=== PATIENT | female | born 1975 | race Caucasian/White ===

== ENCOUNTER 2016-08-19 19:43 | Emergency (ER) | payer OTHER ==
[~2016-08-19] VITALS: Ht 170.2 cm; Wt 90.7 kg
[~2016-08-19 19:43] MED LIST: AUGMENTIN 875 M1 TAB PO; EFFEXOR XR75 M1 PO; PLAQUENIL200 M1 PO; VERAPAMIL HCL40 M1 PO; VICODIN5-300 PO
--- NOTE | 2016-08-19 21:32 | ED HEADACHE COMPLAINT ---
History of Present Illness General Chief Complaint: Headache Stated Complaint: GARCIA Source: patient Exam Limitations: no limitations Vital Signs & Intake/Output Vital Signs & Intake/Output Vital Signs Date Time Temp Pulse Resp B/P Pulse O2 O2 Flow FiO2 Ox Delivery Rate 08/19 2237 97.7 71 18 115/66 94 Room Air 08/19 2025 99.0 77 20 124/84 97 Room Air ED Intake and Output 08/20 0000 08/19 1200 Intake Total 1000 Output Total Balance 1000 Intake, IV 1000 Patient 200 lb Weight Allergies Coded Allergies: phenytoin (From DILANTIN) (Intermediate, FLUSH 08/19/16) Reconcile Medications AMOXICILLIN/POTASSIUM CLAV (Augmentin 875-125 Tablet) 875 MG/125 MG TAB 1 TAB PO BID CAT BITE HYDROCODONE/ACETAMINOPHEN (Hydrocodon-Acetaminophen 5-325) 5 MG-325 MG TABLET 1 TAB PO Q6HR PRN PAIN Hydroxychlorquine (Plaquenil) 200 MG TABLET 1 TAB PO BID UNKNOWN (Reported) Venlafaxine Hydrochloride (Effexor-XR) 75 MG CER 1 CAP PO DAILY MOOD HEALTH ( Reported) Verapamil Hydrochloride (Verapamil HCl) 40 MG TAB 20 MG PO BID HEART ( Reported) Triage Note: TRIAGE: PT TO ER C/C MIGRAINE H/A X 1 WK WORSENING TODAY. HX OF MIGRAINES. TRIED REGLAN, INDOMETHACIN AND ?MARATRIPTAN MEDICATION. ALSO TRIED OTC ADVIL. ALL WITH NO RELIEF NOTED. Triage Nurses Notes Reviewed? yes : No Patient currently breastfeeds: No HPI: This patient is a 41-year-old female with a past medical history including migraine headaches who presented to the emergency department today accompanied by her for evaluation of a migraine 1 week. The patient reported that she was able to get her migraine headaches down to, "a dull sensation," throughout the week with Reglan for her nausea, indomethacin, and a triptan- based medication. The patient reported that she took indomethacin at approximately 3:00 today and her other medication at approximately 6:00 this evening. She reported that the only other time she was seen in the emergency Department for a severe migraine was approximately 5 years ago when she, "presented like a stroke and needed an MRI." The patient denied history of any stroke diagnosis. The patient reported that she has felt nauseous with no vomiting. She reported the pain is primarily on the left side of her head in the temporal region, it has been radiating to the backs of both her eyes and across her forehead. The pain is a 10 out of 10 and is constant since today. The patient denied any abdominal pain, neck pain, chest pain, difficulty breathing. Positive photophobia. Patient has been reported that she has not had any slurred speech or altered behavior. (CORWIN MALCOLM PA-C) Past History Travel History Traveled to [place] past 21 day No Medical History Any Pertinent Medical History? see below for history Neurological: migraine, seizure EENT: NONE Cardiovascular: NONE Respiratory: NONE Gastrointestinal: pancreatitis Hepatic: cholelithiasis Renal: NONE Musculoskeletal: MIXED CONNECTIVE TISSUE D/O Psychiatric: NONE Endocrine: NONE Blood Disorders: NONE Cancer(s): NONE GRAPHICS INTERN/Reproductive: NONE Tetanus Vaccine: 02/06/15 Surgical History Surgical History: non-contributory Psychosocial History What is your primary language Yoruba Tobacco Use: Current Daily Use Daily Tobacco Use Amount/Type: => 5 Cigarettes daily ETOH Use: occasional use Illicit Drug Use: denies illicit drug use Family History Hx Contributory? No (CORWIN MALCOLM PA-C) Review of Systems Review of Systems Constitutional: Reports: no symptoms. Eyes: Reports: see HPI. Ears, Nose, Throat, Mouth: Reports: no symptoms. Respiratory: Reports: no symptoms. Cardiovascular: Reports: no symptoms. Gastrointestinal/Abdominal: Reports: see HPI. Genitourinary: Reports: no symptoms. Musculoskeletal: Reports: no symptoms. Skin: Reports: no symptoms. Neurological/Psychological: Reports: see HPI. Endocrine: Reports: no symptoms. All Other Systems: Reviewed and Negative (CORWIN MALCOLM PA-C) Physical Exam Physical Exam Cranial Nerves: normal hearing, normal speech, PERRL Comments: Well-developed well-nourished person in no acute distress HEENT: Head normocephalic/atraumatic with no bony deformity/step-offs of the skull, tenderness to palpation over the left side of the scalp and left side of the forehead. Moist mucous membranes PERRLA bilaterally. EOMI bilaterally Neck: Supple, no lymphadenopathy. No midline tenderness Back: Normal inspection Cardiovascular: Regular rate and rhythm with no murmurs, rubs, or gallops Respiratory: No respiratory distress. Breath sounds clear to auscultation bilaterally Abdomen: Soft, nontender and nondistended Extremity: Normal and equal pulses. Neuro: Alert oriented x3, motor sensory normal, cranial nerves II through XII grossly intact. No facial droop. No aphasia. Left-sided loading inspector strength weakness at 4 out of 10 compared to the right side at 5 out of 5 Skin: No appreciable rash on exposed skin, skin is warm and dry. Psych: Mood and affect is normal Core Measures Severe Sepsis Present: No Septic Shock Present: No (YUN HODGE,CORWIN) Progress Differential Diagnosis: carotid dissection, cav sinus thromb, cluster GARCIA, encephalitis, IC mass/tumor, intracranial Hem., meningitis, migraine GARCIA, sinusitis, subarach. Hem., tension GARCIA, temporal arteritis, viral cephalgia, CVA/ TIA Plan of Care: Laboratory Tests 08/19/162121: Urine Test Cancelled Diagnostic Imaging: Viewed by Me: CT Scan. Discussed w/RAD: CT Scan. Radiology Impression: PATIENT: SATNAM RAUSCH PRESENT AGE: 41 PATIENT ACCOUNT NO: [id number] : 75 LOCATION: [facility], [place] ORDERING PHYSICIAN: CORWIN MALCOLM PA-C SERVICE DATE: 08/19/16 EXAM TYPE: CAT - CT HEAD WO IV CONTRAST EXAMINATION: CT HEAD WITHOUT CONTRAST CLINICAL INFORMATION: Evaluate for mass or intracranial hemorrhage. Headaches x1 week. COMPARISON: No relevant prior imaging is available. TECHNIQUE: Contiguous axial imaging was performed from the skull base to vertex without intravenous administration of contrast. DLP: 529.16 mGy-cm FINDINGS: There is no acute intracranial hemorrhage or abnormal extra-axial collection. No intracranial mass effect or midline shift. Lateral and third ventricles are normal. No hydrocephalus. Villeda-white matter differentiation is grossly preserved and there is no evidence of acute territorial infarct. The calvarium and skull base are intact. Mastoid air cells and middle ear cavities are well aerated. Visualized paranasal sinuses are well aerated. IMPRESSION: Normal CT scan of the head. DICTATED BY: FRANKLYN PHILIP MD DATE/TIME DICTATED:08/19/162236 PRECINCT I POLICE SERGEANT:PRIMO DATE/TIME TRANSCRIBED:08/19/162236 CONFIDENTIAL, DO NOT COPY WITHOUT APPROPRIATE AUTHORIZATION. <Electronically signed in Other Vendor System> SIGNED BY: FRANKLYN PHILIP MD 08/19/16 4276 Comments: 08/19/2016 10:51:02 PM: I was at the patient's bedside for reevaluation. She reported that she feels like her head pain is gone. Updated her on the results of her CT scan which was unremarkable. She is stable for discharge home at this time. (CORWIN MALCOLM PA-C) Departure Departure Disposition: HOME OR SELF CARE Condition: Stable Clinical Impression Primary Impression: Migraine Qualifiers: Migraine type: unspecified Status migrainosus presence: without status migrainosus Intractability: not intractable Qualified Code: G43.909 - Migraine, unspecified, not intractable, without status migrainosus Referrals: PATIENT HAS NO PRIMARY CARE DR (PCP/Family) Additional Instructions: Please continue to take all previously prescribed medications as directed. Consider following up with your neurologist for any persistent or worsening symptoms a return to the emergency Department for any worsening symptoms or concerns. Departure Forms: Customer Survey General Discharge Information (CORWIN MALCOLM PA-C) PA/POCKET CUTTER Co-Sign Statement Statement: ED Attending supervision documentation- [] I saw and evaluated the patient. I have also reviewed all the pertinent lab results and diagnostic results. I agree with the findings and the plan of care as documented in the PA's/POCKET CUTTER's documentation. [X] I have reviewed the ED Record and agree with the PA's/POCKET CUTTER's documentation. [] Additions or exceptions (if any) to the PAs/POCKET CUTTER's note and plan are summarized below: [] (CIARA PEGUERO,IBRAHIMA Forde)
[2016-08-19 22:38] VITALS: BP 115/66
--- NOTE | 2016-08-19 22:42 | CT SCAN REPORT ---
EXAMINATION: CT HEAD WITHOUT CONTRAST CLINICAL INFORMATION: Evaluate for mass or intracranial hemorrhage. Headaches x1 week. COMPARISON: No relevant prior imaging is available. TECHNIQUE: Contiguous axial imaging was performed from the skull base to vertex without intravenous administration of contrast. DLP: 529.16 mGy-cm FINDINGS: There is no acute intracranial hemorrhage or abnormal extra-axial collection. No intracranial mass effect or midline shift. Lateral and third ventricles are normal. No hydrocephalus. Villeda-white matter differentiation is grossly preserved and there is no evidence of acute territorial infarct. The calvarium and skull base are intact. Mastoid air cells and middle ear cavities are well aerated. Visualized paranasal sinuses are well aerated. IMPRESSION: Normal CT scan of the head.
== END 2016-08-19 23:17 ==
LOC: ERH 19:43
DX: G43.909 Migraine, unspecified, not intractable, without status migrainosus (principal)
CPT/HCPCS: 81025; 96361; 96374; 96375; J1200; J1885

== ENCOUNTER 2016-12-21 11:57 | Emergency (ER) | payer OTHER ==
[~2016-12-21] VITALS: Ht 170.2 cm; Wt 97.5 kg
--- NOTE | 2016-12-21 12:05 | ED SYNCOPE COMPLAINT ---
History of Present Illness General Chief Complaint: Syncope and Near-Syncope Stated Complaint: SYNCOPE Source: patient, family, old records, EMS Exam Limitations: no limitations Vital Signs & Intake/Output Vital Signs & Intake/Output Vital Signs Date Time Temp Pulse Resp B/P B/P Pulse O2 O2 Flow FiO2 Mean Ox Delivery Rate 12/21 1418 98.3 68 18 122/75 98 Room Air 12/21 1411 97.8 69 107/74 98 Room Air 12/21 1213 Room Air 12/21 1207 98.6 83 18 119/79 96 Room Air Allergies Coded Allergies: phenytoin (From DILANTIN) (Intermediate, FLUSH 08/19/16) Reconcile Medications Hydroxychlorquine (Plaquenil) 200 MG TABLET 1 TAB PO BID UNKNOWN (Reported) Venlafaxine HCl (Effexor XR) 75 MG CAP.ER.24H 1 CAP PO DAILY MOOD STABILITY ( Reported) Verapamil Hydrochloride (Verapamil HCl) 40 MG TABLET 0.5 TAB PO BID HEART ( Reported) Triage Nurses Notes Reviewed? yes HPI: Patient is in the process of moving. Patient received a text from her friend 10 :15 and making sure that they were still on for today. The patient responded yes. The patient's friend then came over at 11 AM and knocked on the door but There is no answer so she let herself in and found the patient unresponsive on the floor next to the couch. Patient slowly came to over the next 15 minutes. Patient states that she remembers text and her friend back and putting the phone down. She then decided to go get something to drink so remember standing up from the couch and the next thing she knew people were standing over her. Patient was awake alert and oriented upon EMS arrival. There were no signs of trauma. There is no incontinence. There is no tongue laceration. Patient states that in 1992 she was admitted to [facility] for one week for possible seizures. Patient was tried on multiple different medications but then it were not working so they stopped everything and she has been fine since then. Past History Medical History Any Pertinent Medical History? 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 No Review of Systems Review of Systems Constitutional: Reports: no symptoms. EENTM: Reports: no symptoms. Respiratory: Reports: no symptoms. Cardiovascular: Reports: no symptoms. GI: Reports: no symptoms. Genitourinary: Reports: no symptoms. Musculoskeletal: Reports: no symptoms. Skin: Reports: no symptoms. Neurological/Psychological: Reports: no symptoms. All Other Systems: Reviewed and Negative Physical Exam Physical Exam General Appearance: well developed/nourished, alert, awake Head: atraumatic, normal appearance, NO HEMATOMA Eyes: Bilateral: PERRL, EOMI. Ears, Nose, Throat: normal pharynx, normal ENT inspection, hearing grossly normal, NO TONGUE LACERATION Neck: normal inspection, supple, full range of motion, no midline tenderness Respiratory: normal breath sounds, chest non-tender, no respiratory distress, lungs clear Cardiovascular: regular rate/rhythm, normal peripheral pulses Gastrointestinal: normal bowel sounds, soft, non-tender, no organomegaly Back: normal inspection, normal range of motion Extremities: normal inspection, normal capillary refill, normal range of motion, no edema Psychiatric: awake, alert, oriented x 3 Cranial Nerves: normal hearing, normal speech, PERRL Coordination/Gait: normal finger to nose, normal gait Motor/Sensory: no motor/sensory deficits Skin: intact, normal color, warm/dry Core Measures ACS in differential dx? No CVA/TIA Diagnosis: No Severe Sepsis Present: No Septic Shock Present: No Progress Differential Diagnosis: drug induced syncope, orthostatic syncope, pulmonary embolus, seizure Plan of Care: Orders Procedure Date/time Status Regular Diet 12/21 D Active Telemetry/End Trimmer 12/21 1203 Active URINALYSIS 12/21 1203 Complete TROPONIN LEVEL 12/21 1203 Complete PARTIAL THROMBOPLASTIN TIME 12/21 1203 Complete PROTHROMBIN TIME 12/21 1203 Complete PROLACTIN 12/21 1203 Complete HUMAN BETA HCG SCREEN 12/21 1203 Complete COMPREHENSIVE METABOLIC PANEL 12/21 1203 Complete CBC WITHOUT DIFFERENTIAL 12/21 1203 Complete EKG 12/21 1159 Active Laboratory Tests 12/21/16 1340: Urine Color YEL, Urine Clarity CLEAR, Urine pH 6.0, Ur Specific [place] 1.020, Urine Protein NEG, Urine Ketones NEG, Urine Nitrite NEG, Urine Bilirubin NEG, Urine Urobilinogen 0.2, Ur Leukocyte Esterase NEG, Ur Microscopic EXAM NOT REQUIRED, Urine Hemoglobin NEG, Urine Glucose NEG 12/21/16 1212: Anion Gap 8, Estimated GFR > 60, BUN/Creatinine Ratio 17.5, Glucose 86, Calcium 9.1, Total Bilirubin 0.4, AST 15, ALT 38, Alkaline Phosphatase 58, Troponin I < 0.01, Total Protein 6.7, Albumin 3.8, Globulin 2.9, Albumin/Globulin Ratio 1.3, Prolactin 11.1, Total Beta HCG NEGATIVE, PT 12.2, INR 1.16, APTT 30, CBC w Diff NO MAN DIFF REQ, RBC 4.34, MCV 91.6, MCH 30.1, RDW 13.2, MPV 8.2, Gran % 64.3, Lymphocytes % 25.8, Monocytes % 6.7, Eosinophils % 2.5, Basophils % 0.7, Absolute Granulocytes 4.5, Absolute Lymphocytes 1.8, Absolute Monocytes 0.5, Absolute Eosinophils 0.2, Absolute Basophils 0, PUBS MCHC 32.9 L Diagnostic Imaging: Viewed by Me: CT Scan. Discussed w/RAD: CT Scan. Radiology Impression: PATIENT: SATNAM RAUSCH PRESENT AGE: 41 PATIENT ACCOUNT NO: [id number] : 75 LOCATION: [facility] ORDERING PHYSICIAN: IBRAHIMA URBINA MD SERVICE DATE: 12/21/16 EXAM TYPE: CAT - CT CERV SPINE WO IV CONTRAST; CT HEAD WO IV CONTRAST EXAMINATION: CT HEAD W/O IV CONTRAST CT CERVICAL SPINE W/O IV CONTRAST CLINICAL INFORMATION: 41-year-old female status post fall with head injury. Evaluate for fracture and intracranial hemorrhage. COMPARISON: Head CT from 08/19/2016. TECHNIQUE: Head - Contiguous axial imaging of the head was performed from the skull base to the vertex without the administration of intravenous contrast, and axial images are reconstructed at 0.625 mm, 2.5 mm and 5 mm slice thickness. Cervical spine - A volumetric, helical CT acquisition of the cervical spine was obtained without contrast; in addition to the standard set of axial images, multiplanar reformatted images were provided in the coronal and sagittal imaging planes. DLP : 886 mGy-cm (total) FINDINGS: HEAD: No evidence of acute intracranial hemorrhage, major vascular territory infarction, focal mass effect or midline shift. Villeda to white matter differentiation is well preserved. The ventricles have normal size and configuration. The sulci and basilar cisterns are unremarkable. There are no extra-axial fluid collections. The calvarium is intact and the visualized paranasal sinuses, mastoid air cells and middle ear cavities are clear. The temporomandibular joints are unremarkable. The visualized orbits and globes are intact. CERVICAL SPINE: The cervical spine is straightened with lack of lordotic curvature. The craniocervical junction is intact. The occipital condyles, atlas, axis and atlantoaxial articulation are intact. The vertebral body heights and alignment are maintained. No acute fractures in the anterior or posterior elements. There is no prevertebral soft tissue swelling. At C6-C7, there is [id number]-akrvykwh narrowing of disc space and traction osteophyte formation. Otherwise, disc spaces are well-preserved. The facet joints and uncovertebral joints are unremarkable. There is no evidence of osseous stenosis of the central spinal canal or neural foramina. No evidence of epidural hematoma or focal fluid collection in the neck. The visualized lung apices are clear. Thyroid gland is normal. No evidence of cervical lymphadenopathy. IMPRESSION: 1. No acute intracranial pathology. 2. No evidence of fracture or malalignment in the cervical spine. 3. Vebp-rg-visdecvo disc- vertebral degenerative change at C6-C7. DICTATED BY: GANESH DUNLAP MD DATE/ TIME DICTATED:12/21/161351 AVIONICS ELECTRONICS TECHNICIAN:PRIMO DATE/TIME TRANSCRIBED: 12/21/161351 CONFIDENTIAL, DO NOT COPY WITHOUT APPROPRIATE AUTHORIZATION. < Electronically signed in Other Vendor System> SIGNED BY: GANESH DUNLAP MD 12/21/16 1401 Pre-Hospital EKG: NSR, no ST T wave changes Initial ED EKG: NSR, no ST T wave changes Rhythm Strip: normal sinus rhythm Comments: Discussed with Dr. Keller. He will consult on the patient in the emergency room. Patient has been seen and evaluated by Dr. Keller. Patient is stable for discharge. Patient will follow-up with him in the office. Departure Departure Disposition: HOME OR SELF CARE Condition: Stable Clinical Impression Primary Impression: Syncope Referrals: PATIENT HAS NO PRIMARY CARE DR (PCP/Family) ARIANNA PEGUERO PhD,INES Kwan Additional Instructions: FOLLOW UP WITH DR. KELLER RETURN FOR ANY CONCERNS Departure Forms: Customer Survey General Discharge Information
[2016-12-21 12:38] LABS: ABSOLUTE BASOPHIL COUNT 0 /CUMM (0.0-0.2); ABSOLUTE EOSINOPHIL COUNT 0.2 /CUMM (0.0-0.7); ABSOLUTE GRANULOCYTE CT 4.5 /CUMM (1.4-6.5); ABSOLUTE LYMPH COUNT 1.8 /CUMM (1.2-3.4); ABSOLUTE MONOCYTE COUNT 0.5 /CUMM (0.10-0.60); BASOPHIL % 0.7 % (0.0-2.0); EOSINOPHIL % 2.5 % (0-5); GRANULOCYTE % 64.3 % (42.2-75.2); HEMATOCRIT 39.8 % (37-47); MEAN CORPUSCULAR HGB 30.1 PG (27.0-31.0); MEAN CORPUSCULAR HGB CONC 32.9 G/DL (33.0-37.0); MEAN CORPUSCULAR VOLUME 91.6 FL (81.0-99.0); MEAN PLATELET VOLUME 8.2 FL (7.4-10.4); PLATELET COUNT 326 /CUMM (130-400); RBC DISTRIBUTION WIDTH 13.2 % (11.5-14.5); RED BLOOD CELL CT 4.34 /CUMM (4.20-5.40); WHITE BLOOD CELL COUNT 6.9 /CUMM (4.8-10.8)
[2016-12-21 12:42] LABS: PT 12.2 SEC (9.4-12.5); PTT 30 SEC (25-37)
--- NOTE | 2016-12-21 14:01 | CT SCAN REPORT ---
EXAMINATION: CT HEAD W/O IV CONTRAST CT CERVICAL SPINE W/O IV CONTRAST CLINICAL INFORMATION: 41-year-old female status post fall with head injury. Evaluate for fracture and intracranial hemorrhage. COMPARISON: Head CT from 08/19/2016. TECHNIQUE: Head - Contiguous axial imaging of the head was performed from the skull base to the vertex without the administration of intravenous contrast, and axial images are reconstructed at 0.625 mm, 2.5 mm and 5 mm slice thickness. Cervical spine - A volumetric, helical CT acquisition of the cervical spine was obtained without contrast; in addition to the standard set of axial images, multiplanar reformatted images were provided in the coronal and sagittal imaging planes. DLP: 886 mGy-cm (total) FINDINGS: HEAD: No evidence of acute intracranial hemorrhage, major vascular territory infarction, focal mass effect or midline shift. Villeda to white matter differentiation is well preserved. The ventricles have normal size and configuration. The sulci and basilar cisterns are unremarkable. There are no extra-axial fluid collections. The calvarium is intact and the visualized paranasal sinuses, mastoid air cells and middle ear cavities are clear. The temporomandibular joints are unremarkable. The visualized orbits and globes are intact. CERVICAL SPINE: The cervical spine is straightened with lack of lordotic curvature. The craniocervical junction is intact. The occipital condyles, atlas, axis and atlantoaxial articulation are intact. The vertebral body heights and alignment are maintained. No acute fractures in the anterior or posterior elements. There is no prevertebral soft tissue swelling. At C6-C7, there is mvwj-gv-hekcchhs narrowing of disc space and traction osteophyte formation. Otherwise, disc spaces are well-preserved. The facet joints and uncovertebral joints are unremarkable. There is no evidence of osseous stenosis of the central spinal canal or neural foramina. No evidence of epidural hematoma or focal fluid collection in the neck. The visualized lung apices are clear. Thyroid gland is normal. No evidence of cervical lymphadenopathy. IMPRESSION: 1. No acute intracranial pathology. 2. No evidence of fracture or malalignment in the cervical spine. 3. Eokl-xn-gjgoxqsb disc-vertebral degenerative change at C6-C7.
[2016-12-21 16:25] VITALS: BP 109/67
--- NOTE | 2016-12-21 16:28 | Cons- Cardiology ---
General Information and HPI Consulting Request Date of Consult: 12/21/16 Requested By: er History of Present Illness: Gemini is a 41 year old female with history of possible seizure disorder and bariatric surgery. She has not noted any issues of syncope in several years although she does noted occasional rapid palpitations and shortness of breath with exertion. Today, this patient made a phone call and subsequently was discovered by a friend on the ground. About 45 minutes had passed between the phone call and when she was discovered. The patient was not incontinent and has no recollection of palpitations or passing out. When she awakened she was alert after a short period of time. She denies diarrhea or any reason for being dehydrated and her labs are all normal with a normal ECG. Allergies/Medications Allergies: Coded Allergies: phenytoin (From DILANTIN) (Intermediate, FLUSH 08/19/16) Home Med List: Hydroxychlorquine (Plaquenil) 200 MG TABLET 1 TAB PO BID UNKNOWN (Reported) Venlafaxine HCl (Effexor XR) 75 MG CAP.ER.24H 1 CAP PO DAILY MOOD STABILITY ( Reported) Verapamil Hydrochloride (Verapamil HCl) 40 MG TABLET 0.5 TAB PO BID HEART ( Reported) Review of Systems Review of Systems: generalized achiness Past History Travel History Traveled to [place] past 21 day No Medical History Neurological: migraine, seizure EENT: NONE Cardiovascular: NONE Respiratory: NONE Gastrointestinal: pancreatitis Hepatic: cholelithiasis Renal: NONE Musculoskeletal: MIXED CONNECTIVE TISSUE D/O Psychiatric: NONE Endocrine: NONE Blood Disorders: NONE Cancer(s): NONE 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 Surgical History Surgical History: cholecystectomy, hysterectomy, gastric sleeve procedure Psychosocial History Smoking Status: Current Everyday Smoker (1/2 to 1 ppd) ETOH Use: denies use Illicit Drug Use: denies illicit drug use Exam & Diagnostic Data Vital Signs and I&O Vital Signs Date Time Temp Pulse Resp B/P B/P Pulse O2 O2 Flow FiO2 Mean Ox Delivery Rate 12/21 1418 98.3 68 18 122/75 98 Room Air 12/21 1411 97.8 69 107/74 98 Room Air 12/21 1213 Room Air 12/21 1207 98.6 83 18 119/79 96 Room Air Intake & Output 12/21 1600 12/21 0800 12/21 0000 12/20 1600 12/20 0800 12/20 0000 Intake Total 120 Output Total Balance 120 Intake, Oral 120 Patient 215 lb Weight Weight Reported by Patient Measurement Method Physical Exam: General: WD/Obese female in NAD; alert and oriented x 3 HEENT: NC/AT, PERRL, EOMI Neck: no JVD, no carotid bruit Heart: RRR w/o murmur Lungs: clear bilaterally Abdomen: soft, NT, +ve bowel sounds Extremities: no edema Diagnostic Data EKG Results sinus rhythm Assessment/Plan Assessment/Plan * This patient has a low likelihood of an arrhythmia although it is reasonable to pursue an outpatient Holter monitor. I do not think she is dehydrated and a seizure is also unlikely. A vagal episode is the most likely cause of her fainting although it is a bit atypical that she was out for 45 minutes. This patient can be discharged to home with follow up in the office in one week. At that time I will pursue a Holter monitor. Consult Acknowledgment - Thank you for your consult request.
== END 2016-12-21 16:37 ==
LOC: ERH 11:57
PROVIDERS: Emergency Medicine
DX: R55 Syncope and collapse (principal)
CPT/HCPCS: 81003; 93005; 93010